=== PATIENT | male | born 1960 | race African-American/Black ===

== ENCOUNTER 2018-04-19 09:04 | Emergency (ER) | payer OTHER ==
[~2018-04-19] VITALS: Ht 165.1 cm; Wt 45.0 kg
[2018-04-19 09:47] LABS: BASOPHILS % 0.6 % (0.0-2.0); EOSINOPHILS % 1.5 % (0.0-5.0); HEMATOCRIT. 21.1 % (42.0-52.0); LYMPHOCYTES % 33.2 % (20.0-50.0); MEAN CORPUSCULAR HEMOGLOBIN 29.1 pg (28.0-32.0); MEAN CORPUSCULAR VOLUME 90.6 fL (80.0-94.0); MEAN PLATELET VOLUME 8.7 fl (7.4-10.4); MONOCYTES % 3.3 % (2.0-8.0); NEUTROPHILS % 61.4 % (40.0-76.0); PLATELET 340 x1000/uL (130-400); RED BLOOD CELL COUNT 2.33 mill/uL (4.7-6.1); RED CELL DISTRIBUTION WIDTH 17.3 % (11.6-14.6)
[2018-04-19 09:50] LABS: INR 1.1; PROTHROMBIN TIME 11.5 sec (9.1-11.1)
[2018-04-19 09:52] LABS: CHLORIDE 110 mEq/L (98-107)
[2018-04-19 09:54] LABS: HEMOGLOBIN. 6.8 g/dL (14.0-18.0)
[2018-04-19] MEDS ORDERED: DOPAMINE 400MG/250ML PREMIX 250 ML IV STA (10:14)
[2018-04-19] MEDS ORDERED: DOPAMINE 400MG/250ML PREMIX 250 ML IV ONE ×2 (10:20→14:22)
[2018-04-19] MEDS ORDERED: LIDOCAINE HCL 1% 20ML VIAL (Pyxis) INJ ONE (10:59)
[2018-04-19] MEDS ORDERED: SODIUM BICARBONATE 4% (2.4MEQ) 5ML VIAL IV ONE (10:59)
[2018-04-19 12:00] VITALS: BP 89/55
[2018-04-19] MEDS ORDERED: NOREPINEPHRINE 4 MG in DEXT 5% WATER 250 ML IV STA (12:19)
[2018-04-19] MEDS ORDERED: NOREPINEPHRINE 4MG/250ML PMX 250 ML IV ONE ×2 (12:28→14:21)
[2018-04-19] MEDS ORDERED: ETOMIDATE 2MG/ML 10ML VIAL IV ONE (12:30)
[2018-04-19] MEDS ORDERED: SUCCINYLCHOLINE CHLORIDE 200MG/10ML IV ONE (12:30)
[2018-04-19] MEDS ORDERED: PANTOPRAZOLE 80 MG in SODIUM CHLORIDE 0.9% 100 ML IV STA (13:33)
[2018-04-19] MEDS ORDERED: OCTREOTIDE ACETATE 50 MCG/ML 1ML IV STA (13:33)
[2018-04-19 13:44] LABS: BG BASE EXCESS -14.6 mmol/L (-2.0-2.0); BG CARBOXYHEMOGLOBIN 0.4 % (0.5-1.5); BG DEOXYHEMOGLOBIN 1.1 % (0.0-5.0); BG FRACTION INSPIRED OXYGEN 100; BG HCO3 ACT 13.5 mmol/L (22.0-26.0); BG METHEMOGLOBIN 0.3 % (0.0-1.5); BG OXYGEN SATURATION 98.9 % (92.0-98.5); BG OXYHEMOGLOBIN 98.2 % (94.0-97.0); BG PCO2 40.9 mmHg (35.0-45.0); BG PH 7.137 (7.350-7.450); BG PO2 453.6 mmHg (75.0-100.0); BG SAMPLE SITE LEFT FEMORAL; BG TIDAL VOLUME(mL) 500 mL; BG TOTAL HEMOGLOBIN 9.4 g/dL (12.0-18.0); BG VENT MODE VENT - A/C; BG VENT RATE 14 set
[2018-04-19] MEDS ORDERED: SODIUM BICARBONATE 8.4% 1 MEQ/ML 50ML SYR IV NR (14:45)
[2018-04-19] MEDS ORDERED: ONDANSETRON HCL 4MG/2ML INJ IV PRN (14:45)
[2018-04-19] MEDS ORDERED: IPRATROPIUM/ALBUTEROL 0.5-3(2.5)MG/3ML NEB INH PRN (14:45)
[2018-04-19] MEDS ORDERED: PANTOPRAZOLE 80 MG in SODIUM CHLORIDE 0.9% 100 ML IV SCH (14:45)
[2018-04-19] MEDS ORDERED: DOPAMINE 400MG/250ML PREMIX 250 ML IV SCH (14:45)
[2018-04-19] MEDS ORDERED: DEXT 5%/0.45% NACL 1000ML 1,000 ML IV SCH (14:45)
[2018-04-19] MEDS ORDERED: OCTREOTIDE 1,000 MCG in SODIUM CHLORIDE 0.9% 100 ML IV SCH (14:45)
[2018-04-19] MEDS ORDERED: ACETAMINOPHEN 325MG TABLET NG PRN (14:45)
[2018-04-19] MEDS ORDERED: NOREPINEPHRINE 4 MG in DEXT 5% WATER 246 ML IV ONE (14:45)
[2018-04-19] MEDS ORDERED: EPINEPHRINE 0.1MG/ML (1:10,000) 10ML SYR ONE ×3 (14:52→14:59)
[2018-04-19 15:15] LABS: BG BASE EXCESS -14.8 mmol/L (-2.0-2.0); BG CARBOXYHEMOGLOBIN 0.3 % (0.5-1.5); BG FRACTION INSPIRED OXYGEN 100; BG HCO3 ACT 15.2 mmol/L (22.0-26.0); BG METHEMOGLOBIN 0.4 % (0.0-1.5); BG OXYHEMOGLOBIN 98.3 % (94.0-97.0); BG PCO2 55.4 mmHg (35.0-45.0); BG PH 7.057 (7.350-7.450); BG PO2 503.5 mmHg (75.0-100.0); BG SAMPLE SITE LEFT FEMORAL; BG TIDAL VOLUME(mL) 500 mL; BG TOTAL HEMOGLOBIN 10.7 g/dL (12.0-18.0); BG VENT MODE VENT - A/C; BG VENT RATE 14 set
[2018-04-19] MEDS ORDERED: IOHEXOL-300 100 ML BOTTLE ONE (15:17)
[2018-04-20] MEDS ORDERED: SODIUM BICARBONATE 8.4% 1 MEQ/ML 50ML SYR IV NR (05:00)
[2018-04-20] MEDS ORDERED: EPINEPHRINE 0.1MG/ML (1:10,000) 10ML SYR ONE (13:26)
== END 2018-04-19 16:38 | disposition expired ==
LOC: ER 09:04 → EDBEDREQ 10:46 → EDBEDREQSVC 10:46 → CANRESERV 14:10 → ENRESERV 14:10 → EDBEDREQ 14:23 → ER 16:38 → CANBEDREQ 16:44
DX: R57.8 Other shock (principal); K92.2 Gastrointestinal hemorrhage, unspecified; D62 Acute posthemorrhagic anemia; C16.9 Malignant neoplasm of stomach, unspecified; N19 Unspecified kidney failure; I10 Essential (primary) hypertension
CPT/HCPCS: 31500; 36415; 36430; 36569; 36600; 71045; 76937; 80053; 82375; 82805; 82962; 83690; 85025; 85610; 86850; 86900; 86901; 86920; 86945; 92950; 93005; 99291; C1725; C9113; J0330; J1265; J2354; J3490; J7050; J7060; Q9967; 94002; P9016